=== PATIENT | male | born 1970 | race Caucasian/White ===

== ENCOUNTER 2022-11-20 18:18 | Emergency (ER) | payer OTHER, SELFPAY ==
[2022-11-20] VITALS (9 sets, daily range): BP systolic 141–181; BP diastolic 82–96; PULSE 67–77; RESP 18; TEMP 36.6; O2SAT 97–100; BMI 39.0
[2022-11-20 19:02] LABS: Add Manual Diff / Slide Review NO; Basophils Absolute Auto 100 /uL (0-100); Basophils Percent Auto 1.1 % (0-2); Eosinophils Absolute Auto 300 /uL (0-450); Eosinophils Percent Auto 3.2 % (2-4); Hematocrit 46.4 % (41-53); Hemoglobin 16.4 g/dL (13.5-17.5); Lymphocytes Absolute Auto 2300 /uL (1100-4500); Lymphocytes Percent Auto 26.9 % (25-40); Mean Corpuscular HGB Conc 35.4 % (30-36); Mean Corpuscular Hemoglobin 28.1 PG (26-34); Mean Corpuscular Volume 79.2 fL (80-100); Monocytes Absolute Auto 700 /uL (0-900); Monocytes Percent Auto 8.1 % (3-14); Neutrophils Absolute Auto 5200 /uL (1500-7000); Neutrophils Percent Auto 60.7 % (50-75); Platelet Count 261 X10^3/uL (150-400); Red Blood Cell Count 5.86 X10^6/uL (4.5-5.9); White Blood Cell Count 8.6 X10^3/uL (4.5-11.0)
[2022-11-20 19:13] LABS: Alanine Aminotransferase 37 IU/L (<50); Albumin Globulin Ratio 1.2 (1.0-2.8); Alkaline Phosphatase 88 U/L (38-126); Aspartate Aminotransferase 40 IU/L (17-59); BUN Creatinine Ratio 17.6 (6-22); Blood Urea Nitrogen 13 mg/dL (9-20); Calcium 9.3 mg/dL (8.4-10.2); Carbon Dioxide 25 mmol/L (22-32); Chloride 102 mmol/L (98-107); Estimated Glomerular Filt Rate > 60 mL/min (>60); Globulin 4.1 g/dL (1.7-4.1); Glucose 99 mg/dL (70-100); Lipase 43 U/L (23-300); Sodium 137 mmol/L (137-145)
[2022-11-20 19:17] LABS: HEMOLYSIS 84 (0-50)
[2022-11-20 19:18] LABS: Bilirubin Total 1.6 mg/dL (0.2-1.3); Potassium 4.5 mmol/L (3.4-5.1); Total Protein 9.1 g/dL (6.3-8.2)
--- NOTE | 2022-11-20 22:13 | ED.ABDPAIN ---
HPI - Abdominal Pain General Chief Complaint: Abdominal Pain Stated Complaint: Thinks appendix Time Seen by Provider: 11/20/22 19:14 Source: patient Mode of arrival: Ambulatory History of Present Illness HPI narrative: 52-year-old male nonsmoker without chronic medical history presents with a chief complaint of right lower abdominal pain gradually worsening over the course of the day. He states he went to bed feeling fine and developed this pain at some point over the course of the morning. He states that it is intensifying but largely staying in the same place. It is significantly worse if he sneezes or coughs but seems to be worse with some motion as well. He has a poor appetite but denies any vomiting. He has no fever or chills. He denies any change in bowel habits. He denies any dysuria, frequency or urgency and has no scrotal or testicular pain. He denies any injury or heavy lifting Related Data Home Medications Medication Instructions Recorded Confirmed No Known Home Medications 11/20/22 11/20/22 Allergies Allergy/AdvReac Type Severity Reaction Status Date / Time No Known Drug Allergies Allergy Verified 11/20/22 18:35 Review of Systems Review of Systems Narrative: GENERAL: Denies chills, fatigue, malaise, fever, sweats. HEENT: Denies sinus pain, ear pain, sore throat, difficulty swallowing, dizziness. RESPIRATORY: Denies dyspnea, cough, wheezing, hemoptysis, sputum. CARDIOVASCULAR: Denies chest pain, palpitations, orthopnea, edema, GASTROINTESTINAL: See HPI : Denies dysuria, frequency, incontinence, hematuria, urinary retention. MUSCULOSKELETAL: denies weakness, joint pain, or bony pain SKIN: Denies rash, skin lesions, or other NEUROLOGIC: Denies weakness, headache, numbness, change in speech, confusion, seizures, incoordination. PSYCHIATRIC: No concerning psychosocial issues. 12 point review of systems is negative except for those stated above Patient History Social History Smoking Status: Never smoker Smoking Status: Never smoker alcohol intake frequency: holidays/special occasions only Substance Use Type: does not use Exam Narrative Exam Narrative: GENERAL: [52] year old patient appears stated age. Well-developed patient, in mild distress. HEAD: Atraumatic. Normocephalic. EYES: Pupils equal round and reactive. Extraocular motions intact. No scleral icterus. No injection or drainage. ENT: Nose without bleeding, purulent drainage. Throat without erythema, tonsillar hypertrophy or exudate. Airway patent. NECK: Trachea midline. Non tender CARDIOVASCULAR: Regular rate and rhythm without murmurs, gallops, or rubs. RESPIRATORY: Clear to auscultation. Breath sounds equal bilaterally. No wheezes, rales, or rhonchi. GASTROINTESTINAL: Abdomen soft, non-tender, nondistended. EXTREMITIES: No edema or joint tenderness. BACK: Nontender without deformity or crepitance. No flank tenderness. NEURO: AOx3. SKIN: No rash or erythema of visible areas Initial Vital Signs Initial Vital Signs: Vital Signs Temperature 98 F 11/20/22 18:31 Pulse Rate 77 11/20/22 18:31 Respiratory Rate 18 11/20/22 18:31 Blood Pressure 181/95 H 11/20/22 18:31 Pulse Oximetry 98 11/20/22 18:31 Oxygen Delivery Method Room Air 11/20/22 18:31 Course Orders Ordered: ED Orders 11/20/22 18:36 EKG-12 Lead Stat 11/20/22 18:45 Complete Blood Count AUTO DIFF Stat Comprehensive Metabolic Panel Stat Lipase Stat 11/20/22 22:17 CT abdomen pelvis w con Stat Vital Signs Vital signs: Vital Signs - 8 hr 11/20/22 22:12 11/20/22 22:13 11/20/22 22:13 Pulse Rate 72 Blood Pressure 176/96 H Pulse Oximetry 97 97 11/20/22 22:14 11/20/22 22:31 11/20/22 22:43 Pulse Rate 67 77 Blood Pressure 173/91 H Pulse Oximetry 98 100 11/20/22 22:44 11/20/22 22:44 11/20/22 23:00 Pulse Rate 67 Blood Pressure 149/86 H 148/86 H Pulse Oximetry 98 11/20/22 23:00 11/20/22 23:30 11/20/22 23:30 Pulse Rate 68 68 Blood Pressure 141/82 H Pulse Oximetry 97 97 11/21/22 00:00 11/21/22 00:02 11/21/22 00:02 Pulse Rate 74 76 Blood Pressure 153/91 H Pulse Oximetry 96 97 MDM - Abdominal Pain Lab Data 11/20/22 18:45 11/20/22 18:45 Labs: Lab Results 11/20/22 11/20/22 Range/Units 18:45 18:45 WBC 8.6 (4.5-11.0) X10^3/uL RBC 5.86 (4.5-5.9) X10^6/uL Hgb 16.4 (13.5-17.5) g/dL Hct 46.4 (41-53) % MCV 79.2 L (80-100) fL MCH 28.1 (26-34) PG MCHC 35.4 (30-36) % RDW 13.0 (11.6-14.8) % Plt Count 261 (150-400) X10^3/uL Neut % (Auto) 60.7 (50-75) % Lymph % (Auto) 26.9 (25-40) % [place] % (Auto) 8.1 (3-14) % Eos % (Auto) 3.2 (2-4) % Baso % (Auto) 1.1 (0-2) % Neut # (Auto) 5200 (7372-4854) /uL Lymph # (Auto) 2300 (2243-5563) /uL [place] # (Auto) 700 (0-900) /uL Eos # (Auto) 300 (0-450) /uL Baso # (Auto) 100 (0-100) /uL Sodium 137 (137-145) mmol/L Potassium 4.5 (3.4-5.1) mmol/L Chloride 102 (98-107) mmol/L Carbon Dioxide 25 (22-32) mmol/L BUN 13 (9-20) mg/dL Creatinine 0.74 (0.66-1.25) mg/dL Estimated GFR > 60 (>60) mL/min BUN/Creatinine Ratio 17.6 (6-22) Glucose 99 (70-100) mg/dL Calcium 9.3 (8.4-10.2) mg/dL Total Bilirubin 1.6 H (0.2-1.3) mg/dL AST 40 (17-59) IU/L ALT 37 (<50) IU/L Alkaline Phosphatase 88 (38-126) U/L Total Protein 9.1 H (6.3-8.2) g/dL Albumin 5.0 (3.5-5.0) g/dL Globulin 4.1 (1.7-4.1) g/dL Albumin/Globulin Ratio 1.2 (1.0-2.8) Lipase 43 (23-300) U/L Point of care testing: Urine Dip Bedside Urine Glucose Negative Bedside Urine Bilirubin - Negative Bedside Urine Ketone - Negative Urine Specific [place] 1.01 Bedside Urine Occult Blood - Negative Bedside Urine pH 5.5 Bedside Urine Protein - Negative Bedside Urine Urobilinogen - Negative Bedside Urine Nitrite - Negative Bedside Urine Leukocytes - Negative Esterase Imaging Data CT scan - abdomen/pelvis: Radiologist's Impression: No acute intra-abdominal abnormality. Specifically no evidence of acute appendicitis MDM Narrative Medical decision making narrative: CC: 52-year-old male with perceived abdominal swelling and right lower quadrant tenderness Complicating co-morbidities: Age greater than 50, BMI 39 Data collected from: Patient Medical records reviewed: Prior notes reviewed in our EMR Differential considered, but not limited to: Appendicitis, bowel obstruction, abdominal wall muscle strain Exam documented above, pertinent findings include: Bowel sounds present Lab Test results independently reviewed as above. Pertinent findings: Independently reviewed EKG as above Imaging studies independently reviewed: CT abdomen and pelvis with IV contrast, no significant findings Discussion: Patient with right lower quadrant pain in the absence of fever, vomiting. Minimally tender on exam, no rebound, obturator, psoas or heel tap. Labs unremarkable, CT without evidence of appendicitis. Elements of patient's history and physical raised the question of the possibility of abdominal wall strain. There is no evidence of bowel obstruction, kidney stone, urine infection Disposition: see below, along with detailed discharge instructions that have been reviewed with patient as well as indications for ED re-evaluation and additional outpatient follow up Discharge Plan Departure Patient Disposition: Home Clinical Impression: Abdominal pain Instructions: DI for Abdominal Pain-Adult Activity Restrictions/Additional Instructions: *You have been diagnosed with [abdominal pain] * As we discussed your history and physical exam as well as labs and imaging are very reassuring. There is no evidence of any severe diagnoses that would require a specific or immediate intervention. *What to do: *Please continue to take your regular medications as directed. *Please follow up with your primary care provider in 2-3 days, call for an appointment. Let them know you were seen in the Emergency Department and that we ask that you be seen in follow up. We will electronically transmit a record of today's note if your PCP is in our system *Please consider a clear liquid diet for the next 24-48 hours and then slowly advance to regular as tolerated. Also, try to avoid alcohol, nicotine, caffeine, spicy, acidic or fatty foods as this may worsen your symptoms *If you do not have a primary care provider please contact the [facility] Resource line at [phone]. They will ask some questions about your medical history and help get you set up with a doctor in the community. *Return to Emergency Department if you should have any new, worsening or concerning symptoms, such as [fever greater than 101 F, shaking chills, worsening pain, persistent vomiting or other bothersome symptoms] Prescriptions: No Action No Known Home Medications Referrals: Miscellaneous,Doctor, MD [Primary Care Provider] - Stand Alone Forms: Patient Portal/API
--- NOTE | 2022-11-20 22:17 | DI.CT.S_ITS ---
PROCEDURE: CT ABDOMEN PELVIS W CON INDICATIONS: severe RLQ pain TECHNIQUE: After the administration of IV contrast, axial sections were acquired from the lung bases to the pubic symphysis. Coronal and sagittal reformats were performed. For radiation dose reduction, the following was used: automated exposure control, adjustment of mA and/or kV according to patient size. COMPARISON: None. FINDINGS: Image quality: Excellent. Lung bases: There is mild atelectasis or scarring in the left lingula. Heart: Heart is normal in size. There is a small hiatal hernia. ABDOMEN: Liver: There is hypoattenuation of the liver consistent with fatty infiltration. There is a small indistinct focal hypodensity laterally in the right hepatic lobe which is too small to characterize but likely represents a cyst. Gallbladder: Within normal limits without calcified gallstones. Biliary ducts: No biliary ductal dilatation. Pancreas: Unremarkable. Spleen: Normal in size. Adrenal Glands: No adrenal nodules. Kidneys and Ureters: No hydronephrosis. Stomach and Bowel: Stomach, small bowel loops, and colon are normal in caliber and wall thickness. Appendix appears within normal limits. There is colonic diverticulosis without acute diverticulitis. Peritoneum: No abnormal intraperitoneal fluid. No free air. Ventral Wall: No hernia. Abdominal Nodes: No retroperitoneal or mesenteric adenopathy by size criteria. Vessels: Aorta and inferior vena cava are normal in size. PELVIS: Pelvic Organs: Unremarkable. Bladder: Unremarkable. Pelvic Nodes: No enlarged lymph nodes. Miscellaneous: No inguinal hernias are seen. Bones: Visualized osseous structures demonstrate no suspicious focal lesions. IMPRESSION: 1. No acute intra-abdominal abnormality. Specifically, no evidence of acute appendicitis. 2. Colonic diverticulosis without acute diverticulitis. Dictated by: Can Nair M.D. on 11/20/2022 at 23:13 Approved by: Can Nair M.D. on 11/20/2022 at 23:16
[2022-11-21] VITALS: PULSE 74; O2SAT 96
[2022-11-21 00:02] VITALS: BP 153/91; PULSE 76; O2SAT 97
== END 2022-11-21 00:13 | disposition home or self-care (01) ==
PROVIDERS: Emergency Provider Emergency Medicine
DX: R10.31 Right lower quadrant pain (principal)
CPT/HCPCS: 36415; 74177; 80053; 81003; 83690; 85025; 93005; 93010; 99284; Q9967